=== PATIENT | female | born 1980 | race Asian ===

== ENCOUNTER 2022-01-06 09:53 | Emergency (ER) | payer BC ==
[2022-01-06 10:11] VITALS: BP 123/86; PULSE 80; TEMP 98; BMI 23.9
== END 2022-01-06 12:04 | disposition home or self-care (01) ==
LOC: FER 09:53
DX: S93.422A Sprain of deltoid ligament of left ankle, initial encounter (principal); X50.9XXA Other and unspecified overexertion or strenuous movements or postures, initial encounter
CPT/HCPCS: 73610-TC-LT-FY; 73630-TC-LT; 99283-25

== ENCOUNTER 2024-03-10 07:20 | Emergency (ER) | payer BC ==
[2024-03-10 07:28] VITALS: BP 126/77; PULSE 91; RESP 18; TEMP 98.2; BMI 24.7
[2024-03-10] MEDS ORDERED: predniSONE 20 MG TABLET (UD) ONE (07:34)
[2024-03-10] MEDS ORDERED: FAMOTIDINE 20 MG TABLET ONE (07:34)
[2024-03-10] MEDS ORDERED: NAPHAZOLINE/PHENIRAMINE OPHTHALMIC 15 ML BOTTLE ONE (07:34)
[2024-03-10] MEDS ORDERED: diphenhydrAMINE HCL 25 MG CAPSULE (FP) PO ONE (07:34)
[2024-03-10] MEDS: NAPHAZOLINE/PHENIRAMINE OPHTHALMIC 15 ML BOTTLE OU ONE (07:39)
[2024-03-10] MEDS: FAMOTIDINE 10 MG TABLET PO ONE (07:39)
[2024-03-10] MEDS: diphenhydrAMINE HCL 25 MG CAPSULE (FP) PO ONE (07:39)
[2024-03-10] MEDS: predniSONE 20 MG TABLET (UD) PO ONE (07:39)
== END 2024-03-10 08:06 | disposition home or self-care (01) ==
LOC: FER 07:20
DX: T78.40XA Allergy, unspecified, initial encounter (principal); H57.89 Other specified disorders of eye and adnexa
CPT/HCPCS: 99283-25